=== PATIENT | male | born 1945 | race Two or more races ===

== ENCOUNTER 2024-05-11 11:52 | Emergency (ER) | payer OTHER ==
[~2024-05-11] VITALS: Ht 177.8 cm; Wt 81.6 kg
[2024-05-11 12:23] VITALS: BP 150/66; O2SAT 98
[2024-05-11] MEDS ORDERED: LOSARTAN-HCTZ1 EAC2 PO (12:26)
[2024-05-11] MEDS ORDERED: UROXATRAL10 MG PO (12:26)
[2024-05-11] MEDS ORDERED: CLONIDINE1 EAC1 TD (12:27)
[2024-05-11] MEDS ORDERED: AMLODIPINE-OLM1 EAC2 (12:27)
[2024-05-11 14:17] LABS: HEMATOCRIT 34.8 % (39.0-48.0); HEMOGLOBIN 11.8 g/dL (13-16.00); MEAN CELL VOLUME 93.6 fL (80.0-100.00); MEAN CORPUSCULAR HEMOGLOBIN 31.6 pg (27.00-32.0); MEAN CORPUSCULAR HGB CONC 33.8 g/dl (32.0-36.0); PLATELET COUNT 147 K/uL (150-450); RED BLOOD COUNT 3.72 M/uL (4.00-6.00); RED CELL DISTRIBUTION WIDTH 13.9 % (11.5-14.5)
[2024-05-11 14:47] LABS: PH,URINE 5.5 (5.0-8.0); URINE APPEARANCE Cloudy; URINE BILIRRUBIN Negative (NEGATIVE); URINE BLOOD Small; URINE COLOR Yellow; URINE GLUCOSE Negative (NEGATIVE); URINE KETONE Trace (NEGATIVE); URINE LEUKOCYTE Negative; URINE NITRATE Negative; URINE UROBILINOGEN 0.2 E.U./dl
[2024-05-11 14:51] LABS: URINE BACTERIA 64.8 uL (0.0-1933); URINE CAST 3.09 uL (0.0-1.40); URINE EPITHELIAL CELLS 27.5 uL (0.0-38.8); URINE RBC 42.8 uL (0.0-20.8); URINE WBC 4.4 uL (0.0-23.2)
[2024-05-11 14:52] LABS: ALBUMIN 3.3 gm/dL (3.4-5.0); BILIRUBIN TOTAL 0.84 mg/dL (0.3-1.2); CALCIUM 8.5 mg/dL (8.5-10.1); CREATININE SERUM 1.7 mg/dL (0.70-1.30); GFR 39.28; GLOBULINA 3.7 G/DL (2.4-3.5); POTASSIUM 3.97 mEq/L (3.5-5.1)
[2024-05-11 15:03] LABS: URINE CRYSTALS FEW /HPF; URINE PROTEIN 100 (NEGATIVE)
== END 2024-05-11 17:31 | disposition home or self-care (01) ==
LOC: ER 11:54
PROVIDERS: General Practice
DX: B34.9 Viral infection, unspecified (principal); R50.9 Fever, unspecified; Z20.822 Contact with and (suspected) exposure to COVID-19; I10 Essential (primary) hypertension